=== PATIENT | female | born 1945 | race Hispanic/Latino ===

== ENCOUNTER → 2017-08-16 | Day surgery (SDC) | payer MEDICARE ==
[2017-08-14 15:49] LABS: BASOPHILS # (AUTO) 0.1 (0.0-0.1); EOSINOPHILS # (AUTO) 0.3 (0.0-0.4); EOSINOPHILS % 3.9 % (0.0-6.0); HEMATOCRIT 42.4 % (34.2-44.1); HEMOGLOBIN 14.2 g/dL (12.0-16.0); LYMPHOCYTES # (AUTO) 2.4 (1.0-3.2); LYMPHOCYTES % 32.7 % (18.0-39.1); MEAN CORPUSCULAR HEMOGLOBIN 29.4 pg (28-32); MEAN CORPUSCULAR HGB CONC 33.5 g/dL (31-35); MEAN CORPUSCULAR VOLUME 87.8 fL (81-99); MONOCYTES # (AUTO) 0.7 (0.2-0.8); MONOCYTES % 9.1 % (4.4-11.3); NEUTROPHILS # (AUTO) 3.8 (2.1-6.9); PLATELET COUNT 183 x10e3/uL (140-360); RED BLOOD COUNT 4.83 x10e6/uL (3.6-5.1); RED CELL DISTRIBUTION WIDTH 12.8 % (11.7-14.4)
[2017-08-14 16:08] LABS: ANION GAP 13.8 mmol/L (8-16); BLOOD UREA NITROGEN 16 mg/dL (7-26); BUN/CREATININE RATIO 23 (6-25); CALCIUM 9.3 mg/dL (8.4-10.2); CARBON DIOXIDE 22 mmol/L (22-29); CHLORIDE 109 mmol/L (98-107); CREATININE, SERUM 0.69 mg/dL (0.57-1.11); EST GLOMERULAR FILTRATION RATE > 60 ML/MIN (60-); GLUCOSE 117 mg/dL (74-118); POTASSIUM 3.8 mmol/L (3.5-5.1); SODIUM 141 mmol/L (136-145)
--- NOTE | 2017-08-14 16:29 | Diagnostic Imaging Report ---
PROCEDURE: Frontal and lateral views of the chest. COMPARISON: None. INDICATIONS: pre-op FINDINGS: Lines/tubes: None. Lungs: The lungs are well inflated. Streaky opacities in the left lung base probably represent atelectasis or scarring. No focal consolidation. Pleura: There is no pleural effusion or pneumothorax. Heart and mediastinum: The heart and the mediastinum are normal. Bones: Multilevel degenerative changes of the thoracic spine. IMPRESSION: Left basilar opacities likely represent scarring or atelectasis. No evidence of infection or edema. Dictated by: Jevon Gant M.D. on 08/14/2017 at 16:37 Electronically approved by: Jevon Gant M.D. on 08/14/2017 at 16:37
[~2017-08-16] MED LIST: EPHEDRINE SULFATE INJ 50 MG/10 ML SYR ONE; FENTANYL CITRATE/PF 100MCG/2 ML INJ ONE; GLYCOPYRROLATE INJ 1MG/ 5 ML SYR ONE; LIDOCAINE 1% W/EPINEPHRINE 20 ML VIAL ONE; LIDOCAINE HCL 2% LOCAL INJ 5 ML SDV VIAL INJ ONE; LOVASTATIN20 MG PO; MIDAZOLAM HCL 2 MG/2 ML VIAL ONE; NAPROXEN PO; NEOSTIGMINE 5 MG/5ML SYR ONE; ONDANSETRON HCL INJ 2 MG/ML VIAL ONE; PROPOFOL IV EMULSION 10 MG/ML 20 ML VIAL ONE; ROCURONIUM BROMIDE 10 MG/ML 5ML VIAL ONE; SEVOFLURANE INHAL SOLN 250 ML PEN BTL ONE; VASOTEC10 MG PO
--- NOTE | 2017-08-16 16:31 | Operative Report ---
DATE OF PROCEDURE: August 16, 2017 PREOPERATIVE DIAGNOSIS: Large lipoma of the scapular region on the right. POSTOPERATIVE DIAGNOSIS: Large lipoma of the scapular region on the right. PROCEDURE PERFORMED: Excision of large lipoma of the right scapular region. SPEECH THERAPY DIRECTOR: FLAQUITO Holder ANESTHESIA: General. ESTIMATED BLOOD LOSS: Minimal. DRAINS: None. COMPLICATIONS: None. INDICATIONS AND FINDINGS: Patient is a 72-year-old female admitted for excision of a mass of the right scapular region that has been present for several years, increasing in size. INTRAOPERATIVE FINDINGS: Were a well encapsulated 11 by about 14 cm lipoma in the right scapular region. DESCRIPTION OF PROCEDURE: With the patient lying on the operative table in the supine position after administration of general anesthesia, she was prepped and draped for excision of large lipoma of the right scapular region. The patient was placed in the prone position and an incision was made across the greater length of the lipoma in a diagonal course through the long axis of the back and the dissection was carried down through the skin, subcutaneous tissue until the lipoma was identified. It was dissected free from the surrounding tissue with electrocautery. Bleeding points were cauterized. Then a 10 mm flat Jacob-Palacios drain was placed to drain the wound and brought out inferiorly and secured to the skin with 2-0 silk. The wound was then irrigated. Bleeding points cauterized, closed in layers using 2-0 Vicryl for the soft tissues and the skin was closed using interrupted 2-0 silk for the skin and then drain was connected to self suction. Local anesthesia was given with 0.25% Marcaine with epinephrine. The patient tolerated the procedure well and was taken to recovery room in stable condition. Job#: [id number]
== END | disposition home or self-care (01) ==
LOC: OR 10:35
PROVIDERS: ATTEND Surgery
DX: D17.21 Benign lipomatous neoplasm of skin and subcutaneous tissue of right arm (principal); I10 Essential (primary) hypertension; M06.9 Rheumatoid arthritis, unspecified; Z01.810 Encounter for preprocedural cardiovascular examination; Z01.812 Encounter for preprocedural laboratory examination; Z01.818 Encounter for other preprocedural examination
CPT/HCPCS: 11406; 12034; 36415; 71020; 80048; 85025; 88304; 93005; J2001; J2250; J2405